=== PATIENT | male | born 1980 | race Caucasian/White ===

== ENCOUNTER 2018-08-19 12:50 | Emergency (ER) | payer MEDICAID ==
[~2018-08-19] VITALS: Ht 185.4 cm; Wt 72.7 kg
[2018-08-19 12:55] VITALS: Ht 185.4 cm; Wt 72.7 kg
[2018-08-19] MEDS ORDERED: ROBAXIN500 MG PO (13:26)
[2018-08-19] MEDS ORDERED: TALWIN NX1 TAB PO (13:26)
[2018-08-19] MEDS ORDERED: VOLTAREN75 MG PO (13:26)
[2018-08-19 14:20] VITALS: BP 128/86
== END 2018-08-19 14:20 | disposition home or self-care (01) ==
LOC: D.ER 12:50
DX: M54.5 Low back pain (principal)